=== PATIENT | male | born 1990 | race Two or more races ===

== ENCOUNTER 2021-12-05 16:20 | Emergency (ER) | payer OTHER ==
[~2021-12-05] VITALS: Ht 175.3 cm; Wt 81.6 kg
[2021-12-05] MEDS ORDERED: CRESTOR20 MG (16:33)
== END 2021-12-05 19:23 | disposition home or self-care (01) ==
LOC: ER 16:20
DX: S62.396A Other fracture of fifth metacarpal bone, right hand, initial encounter for closed fracture (principal); W18.30XA Fall on same level, unspecified, initial encounter; Y92.018 Other place in single-family (private) house as the place of occurrence of the external cause; Z88.2 Allergy status to sulfonamides